=== PATIENT | female | born 2000 | race Caucasian/White ===

== ENCOUNTER 2019-01-30 21:38 | Emergency (ER) | payer SELFPAY ==
[~2019-01-30] VITALS: Ht 154.9 cm; Wt 48.5 kg
[~2019-01-30 21:38] MED LIST: PREN-385 PO
[2019-01-30 21:54] VITALS: BP 110/75
[2019-01-30] MEDS ORDERED: IBUPROFEN 400 MG TAB PO ONE (22:00)
--- NOTE | 2019-01-30 22:03 | NUR ---
PT AMBULATED TO BED 12 WITH STEADY GAIT.
[2019-01-30] MEDS ORDERED: KETOROLAC 30 MG/ML VIAL IVP ONE (22:05)
[2019-01-30] MEDS ORDERED: NACL 0.9% 1,000 ML IV ONE (22:05)
--- NOTE | 2019-01-30 22:55 | NUR ---
Patient presents to ER for fever, patient noted to be 89F. Patient is AA&Ox4. Respirations even and unlabored. Patient family at bedside. Updated on POC, verbalized understanding. Will continue to monitor.
[2019-01-31 00:24] VITALS: BP 97/56
--- NOTE | 2019-01-31 00:25 | NUR ---
Patient discharged with v/s stable. Written and verbal after care instructions given and explained. Patient alert, oriented and verbalized understanding of instructions. Ambulatory with steady gait. All questions addressed prior to discharge. ID band removed. Patient advised to follow up with PMD. Rx of prednisone, motrin, zofran, cipro given. Patient educated on indication of medication including possible reaction and side effects. Opportunity to ask questions provided and answered.
== END 2019-01-31 00:25 | disposition home or self-care (01) ==
LOC: MED 21:38
DX: N39.0 Urinary tract infection, site not specified (principal); J02.9 Acute pharyngitis, unspecified; R51 Headache; Z79.899 Other long term (current) drug therapy
CPT/HCPCS: 81002; 81025; 96374; 99283; J1885; J7030

== ENCOUNTER 2019-04-19 18:34 | Emergency (ER) | payer SELFPAY ==
[~2019-04-19] VITALS: Ht 154.9 cm; Wt 45.4 kg
--- NOTE | 2019-04-19 18:47 | NUR ---
NASAL SWAB SENT TO LAB FOR INFLUENZA
[2019-04-19 18:48] VITALS: BP 100/61
--- NOTE | 2019-04-19 18:48 | NUR ---
TO BED # 02 AMBULATORY
[2019-04-19] MEDS: IBUPROFEN 400 MG TAB PO ONE (19:11)
[2019-04-19] MEDS: ACETAMINOPHEN EXTRA STRENGTH 500 MG TAB PO ONE (19:12)
--- NOTE | 2019-04-19 19:15 | NUR ---
RECEIVED REPORT FROM LITA GAITAN.
--- NOTE | 2019-04-19 19:15 | NUR ---
Pt report given to LITA PORTILLO. Transfer of care at this time.
--- NOTE | 2019-04-19 19:15 | NUR ---
18 Y/O FEMALE BIB BY MOTHER FOR FEVER, FOR 3 DAYS, COUGH, SYNCOPE, AND SHAKING. A/OX4 AND FOLLOWS COMMANDS; BREATHING IS SYMMETRICAL AND UNLABORED AT THIS TIME; 100%SPO2 ON RA. PAIN IS A 5/10; GENERALIZED PAIN. HR IS 120 BPM. HAND TOOL CRIB CLERK ARE STRONG. + NAUSEA, BUT DENIES VOMITING AND DIARRHEA. ERMD MADE AWARE OF STATUS. SIDE RAILSX1. MOTHER AT BEDSIDE. WILL CONTINUE TO MONITOR. PMH:DENIES RX:DENIES NKDA
--- NOTE | 2019-04-19 19:23 | NUR ---
DR. MCKEE AT BEDSIDE EVALUATING PATIENT.
[2019-04-19 19:50] VITALS: BP 100/61
--- NOTE | 2019-04-19 19:50 | NUR ---
Patient discharged with v/s stable. Written and verbal after care instructions given and explained. Patient alert, oriented and verbalized understanding of instructions. Ambulatory with steady gait. All questions addressed prior to discharge. ID band removed. Patient advised to follow up with PMD. Rx of AMOXICILLIN, PROMETHAZINE HYDROCHOLORIDE/DEXTROMETHORPHAN HYDROBROMIDE given. Patient educated on indication of medication including possible reaction and side effects. Opportunity to ask questions provided and answered.
== END 2019-04-19 19:50 | disposition home or self-care (01) ==
LOC: MED 18:34
DX: J02.8 Acute pharyngitis due to other specified organisms (principal); B96.89 Other specified bacterial agents as the cause of diseases classified elsewhere; B97.89 Other viral agents as the cause of diseases classified elsewhere; Z79.899 Other long term (current) drug therapy
CPT/HCPCS: 87804; 99283

== ENCOUNTER 2020-03-14 22:40 | Emergency (ER) | payer SELFPAY ==
[~2020-03-14] VITALS: Ht 149.9 cm; Wt 49.4 kg
[2020-03-14 22:45] VITALS: BP 115/80
--- NOTE | 2020-03-14 22:45 | NUR ---
PT AMBULATED TO BED #3
[2020-03-14 22:53] VITALS: BP 115/80
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
--- NOTE | 2020-03-14 23:45 | NUR ---
ULTRASOUND AT BEDSIDE.
[2020-03-15 00:24] LABS: BASOPHILS % (AUTO) 0.5 % (0.0-2.0); EOSINOPHILS # (AUTO) 0.1 K/uL (0-0.4); EOSINOPHILS % (AUTO) 0.7 % (0.0-4.0); HEMATOCRIT 40.4 % (36-48); HEMOGLOBIN 13.9 g/dL (12.0-16.0); LYMPHOCYTES # (AUTO) 2.2 K/uL (2.5-16.5); LYMPHOCYTES % (AUTO) 25.4 % (20.5-51.1); MEAN CORPUSCULAR HEMOGLOBIN 33 pg (27-31); MEAN CORPUSCULAR HGB CONC 34 g/dL (33-37); MEAN CORPUSCULAR VOLUME 94.4 fL (80-94); MONOCYTES # (AUTO) 0.5 K/uL (0.8-1.0); MONOCYTES % (AUTO) 5.7 % (1.7-9.3); NEUTROPHILS # (AUTO) 5.7 K/uL (1.8-7.7); NEUTROPHILS % (AUTO) 67.7 % (42.2-75.2); PLATELET COUNT (AUTO) 253 K/uL (140-450); RED BLOOD CELL COUNT(AUTO) 4.27 MIL/uL (4.20-5.40); RED CELL DISTRIBUTION WIDTH 12.8 % (11.6-13.7); WHITE BLOOD COUNT (AUTO) 8.5 K/uL (4.5-11.0)
[2020-03-15 00:27] LABS: ALBUMIN 4.1 g/dL (3.4-5.0); ANION GAP 16.4 (8-16); CARBON DIOXIDE 22.2 mmol/L (21-32); CREATININE 0.5 mg/dL (0.6-1.3); POTASSIUM 3.6 mmol/L (3.5-5.1); TOTAL BILIRUBIN 0.4 mg/dL (0.0-1.0)
[2020-03-15 00:30] LABS: APPEARANCE,URINE CLEAR (CLEAR); BILIRUBIN,URINE NEGATIVE (NEGATIVE); BLOOD, URINE NEGATIVE (NEGATIVE); COLOR,URINE YELLOW (YELLOW); LEUKOCYTE ESTERASE ,URINE 1+ (NEGATIVE); NITRITE, URINE NEGATIVE (NEGATIVE); UGLUCOSE NEGATIVE (NEGATIVE)
--- NOTE | 2020-03-15 00:35 | NUR ---
PT RESTING WELL IN BED, NO DISTRESS NOTED. PENDING RESULTS.
[2020-03-15 00:49] LABS: RBC,URINE 0-5 /HPF (0-5); TRICHOMONAS,URINE Few /HPF (None Seen)
--- NOTE | 2020-03-15 01:12 | NUR ---
ERMD AT BEDSIDE.
--- NOTE | 2020-03-15 01:33 | NUR ---
Patient discharged with v/s stable. Written and verbal after care instructions given and explained. Patient alert, oriented and verbalized understanding of instructions. Ambulatory with steady gait. All questions addressed prior to discharge. ID band removed. Patient advised to follow up with PMD. Rx of KEFLEX given. Patient educated on indication of medication including possible reaction and side effects. Opportunity to ask questions provided and answered.PT IN STABLE CONDITION.
== END 2020-03-15 01:33 | disposition home or self-care (01) ==
LOC: MED 22:40
DX: O23.41 Unspecified infection of urinary tract in pregnancy, first trimester (principal); O20.9 Hemorrhage in early pregnancy, unspecified; O23.591 Infection of other part of genital tract in pregnancy, first trimester; Z71.6 Tobacco abuse counseling; Z79.899 Other long term (current) drug therapy; Z3A.08 8 weeks gestation of pregnancy
CPT/HCPCS: 36415; 76801; 80053; 81001; 81025; 84702; 85025; 87086; 99284; Q0092; 99283

== ENCOUNTER 2021-10-13 16:28 | Emergency (ER) | payer OTHER, MEDICAID ==
[~2021-10-13] VITALS: Ht 154.9 cm; Wt 40.8 kg
[2021-10-13 16:29] VITALS: BP 134/92
--- NOTE | 2021-10-13 16:36 | NUR ---
PT AMBULATED TO ER BED 11
--- NOTE | 2021-10-13 16:40 | NUR ---
PT PRESENTS TO ER FOR POSSIBLE WITHDRAWL, STATES USES METH, ETOH, HEROIN DAILY LAST USE 12 HOURS. PT GCS 15. NSR ON MONITOR. NAD. SAFETY MAINTAINED.
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
== END 2021-10-13 17:24 | disposition home or self-care (01) ==
LOC: MED 16:28
DX: R55 Syncope and collapse (principal); R11.0 Nausea; F15.10 Other stimulant abuse, uncomplicated; F11.10 Opioid abuse, uncomplicated; Z79.899 Other long term (current) drug therapy
CPT/HCPCS: 81002; 81025; 93005; 99283

== ENCOUNTER 2022-07-26 08:56 | Emergency (ER) | payer MEDICAID, OTHER ==
[~2022-07-26] VITALS: Ht 157.5 cm; Wt 52.6 kg
[2022-07-26 09:22] VITALS: BP 115/76
--- NOTE | 2022-07-26 10:55 | NUR ---
21 YO/F PRESENTS TO ED W C/O N/D X1 WEEK, NO VOMITING, + ABDOMINAL CRAMPING 11/14 INTERMITENT, + VAG BLEED STARTED SPOTTING THIS ORNING MNOW HAS HAD CONSISTENT BLEEDING "BUT NOT HEAVY BLEEDING." HAS BEED TAKING PEPTO AND MOTRIN LAST TIME YESTERDAY W/O RELIEF. + HOME PREG TEST THIS MORNING. LMP 06/14/22. PT DOES NOT WANT ANYTHING FOR PAIN REPORTS PAIN IS MILD AT THIS TIME. PMH: DENIES ALLERGIES: DENIES
--- NOTE | 2022-07-26 12:45 | NUR ---
pt reports only bleeding a little at this time, no pain or nausea. awaiting lab results.
[2022-07-26 12:56] VITALS: BP 113/79
--- NOTE | 2022-07-26 12:57 | NUR ---
Patient discharged with v/s stable. Written and verbal after care instructions given and explained. Patient verbalized understanding. Ambulatory with steady gait. All questions addressed prior to discharge. Advised to follow up with PMD.
== END 2022-07-26 12:57 | disposition home or self-care (01) ==
LOC: MED 08:56
DX: N92.5 Other specified irregular menstruation (principal); F17.200 Nicotine dependence, unspecified, uncomplicated; Z72.89 Other problems related to lifestyle; Z79.899 Other long term (current) drug therapy
CPT/HCPCS: 36415; 81025; 84702; 99283